=== PATIENT | female | born 1950 | race Caucasian/White ===

== ENCOUNTER → 2020-11-18 14:54 | Outpatient (CLI) | payer MEDICARE, SELFPAY ==
[2020-11-18] MEDS: COVID-19 VACC, Ad26(JANSSEN)/PF 0.5 ML IM (14:59)
== END ==
PROVIDERS: Visit Provider Internal Medicine
DX: Z23 Encounter for immunization (principal)
CPT/HCPCS: 0031A; 91303

== ENCOUNTER 2021-02-21 12:37 | Day surgery (SDC) | payer MEDICARE, SELFPAY ==
[2021-02-21 13:10] LABS: COVID19 -Nasal RAPID Negative (Negative)
[2021-02-21 13:32] VITALS: BP 134/82; PULSE 79; RESP 14; TEMP 36.8; O2SAT 97; BMI 30.1
--- NOTE | 2021-02-21 13:40 | PM.HP.1 ---
History of Present Illness History of Present Illness Date Patient Seen: 02/21/21 Time Patient Seen: 13:40 Chief complaint: SCREENING COLONOSCOPY Narrative: This is a 71-year-old woman with a history of colon polyps, who had her last colonoscopy 5 years ago. She had polyps found on that colonoscopy and was told to have a repeat in 5 years. She denies any symptoms of melena, hematochezia, unexplained abdominal pain, unexplained weight loss. She denies any family history of colon cancers, but says many people in the family have colon polyps. ROS positive for sleep apnea, this aphasia, constipation, UTIs. Thirteen system review is otherwise negative other than as mentioned below and in HPI. PE: GENERAL: Well groomed and cooperative. Appears stated age. Answers questions promptly and appropriately. Vital signs noted. HENT: Normocephalic, atraumatic. Hearing intact. EYES: Conjunctiva pink, sclera white, no periorbital swelling. CARDIOVASCULAR: Regular rate. No pedal edema. RESPIRATORY: Non-tachypneic, breathing comfortably on room air. GASTROINTESTINAL: Abdomen soft and non-distended GENITALURINARY: No flank tenderness. MUSCULOSKELETAL: Equal tone and mass bilaterally. SKIN: Warm, dry, soft, appropriate color for ethnicity. No other lesions, rashes, or wounds. NEURO: Alert and Oriented X 3. No gross sensory deficits, or cognitive issues. PSYCH: Appropriate affect and mood. Patient History Medical History (Updated 02/21/21 @ 13:42 by Emily Martínez MD) Central sleep apnea Insomnia, persistent Obstructive sleep apnea of adult Snoring Surgical History History of tonsillectomy Status post cholecystectomy Status post hysterectomy Family & Social History Family History Brother Age: 67 High cholesterol Brother Depression Alcoholism Child Age: 48 MS (multiple sclerosis) High cholesterol Father Heart disease Hypertension High cholesterol Mother Age: 87 Heart disease High cholesterol Meds Home Medications and Allergies Home Medications Medication Instructions Recorded Confirmed Type paroxetine HCl [Paxil] 20 mg PO Q DAY #30 tab 11/13/16 04/28/19 Rx Respironics DreamStation Auto CPAP #1 ea 04/29/19 04/29/19 History Allergies Allergy/AdvReac Type Severity Reaction Status Date / Time codeine AdvReac Mild Vomiting Verified 02/21/21 13:26 Objective Labs Labs: Laboratory Results - last 24 hr 02/21/21 12:45 SARS-CoV-2 (PCR) Negative Assessment & Plan Assessment and plan (1) Personal history of colonic polyps: Status: Acute Assessment & Plan narrative: Risks and benefits of screening colonoscopy and possible polypectomy were discussed with the patient including risk of bleeding, perforation, need for additional procedures, risks of anesthesia. The patient desires to proceed with the colonoscopy procedure. COVID-19 COVID-19 status: Negative Result date/Date tested (Pos, Neg/Pending): 02/21/21 Time Spent With Patient Time with patient: 15-24 minutes Quality VTE Deep Vein Thrombosis/Pulmonary Embolism Present on Admission: No
--- NOTE | 2021-02-21 13:43 | P.OP.ENDO_ITS ---
Operative Date/Time/Diagnoses Date of procedure: 02/21/21 Time of procedure: 13:43 Pre-op diagnosis: Personal history colon polyps, due for surveillance colonoscopy Post-op diagnosis: other (Very tortuous colon. No polyps found on today's exam.) Procedure & Clinicians Study performed: Colonoscopy Procedural sedation performed by the endoscopist Same procedure as scheduled: Yes Indications: Personal history colon polyps, due for surveillance colonoscopy Surgeon: Emily Martínez Procedure Notes SCOAP/Timeout: Performed Procedure in detail: The patient was brought to the room and placed in left lateral decubitus position with all bony prominences padded. A time-out was performed and then the patient was given procedural sedation starting with 4 mg of Versed and 100 mcg of fentanyl. An additional 2 mg of Versed and 50 micro g of fentanyl were given during the procedure. Vitals were monitored throughout the procedure and remained stable. Once adequately sedated, the procedure was begun. A rectal exam was performed revealing no abnormalities. The colonoscope was then introduced to the rectum and advanced to the cecum in the usual fashion. The cecum was identified by the appendiceal orifice, the mucosal tri- fold, and the ileocecal valve. The scope was then retracted while rotating side to side and examining each mucosal fold. At the conclusion of the procedure retroflexion was performed and small grade 1-2 internal hemorrhoids without stigmata of bleeding were seen. The scope was then withdrawn from the rectum the procedure was concluded. The patient tolerated the procedure well and was transferred to the PACU in stable condition. Scope withdrawal time: 6 Sedation minutes: 18 Specimen(s): none sent Complications: none Impression: Very tortuous colon. No polyps seen on today's exam Post-procedure Recommendations: Colonscopy in 5 years (Due to personal history of colon polyps) Follow up: as needed Disposition: PACU
[2021-02-21] MEDS: SODIUM CHLORIDE 0.9% 1,000 ML 200 ML IV (13:44)
[2021-02-21] MEDS: fentaNYL 250 MCG/5 ML INJ IV (13:58)
[2021-02-21] MEDS: MIDAZOLAM 5 MG/5 ML VIAL IV (13:58)
[2021-02-21 14:13] VITALS: BP 138/75; PULSE 87; RESP 16; TEMP 36.6; O2SAT 97
[2021-02-21 14:18] VITALS: BP 129/74; PULSE 87; RESP 16; O2SAT 100
[2021-02-21 14:30] VITALS: BP 117/70; PULSE 84; RESP 14; TEMP 36.6; O2SAT 99
[2021-02-21 14:42] VITALS: BP 116/67; PULSE 81; RESP 11; O2SAT 100
[2021-02-21 15:05] VITALS: BP 148/96; PULSE 95; TEMP 36.2; O2SAT 94
== END 2021-02-21 15:24 | disposition home or self-care (01) ==
PROVIDERS: PCP Physician Assistant Medical; Referring Provider Surgery; Visit Provider Surgery
PROC: 0DJD8ZZ Inspection of Lower Intestinal Tract, Via Natural or Artificial Opening Endoscopic (ICD-10-PCS; CPT 45378; principal; 2021-02-21 13:45)
DX: Z12.11 Encounter for screening for malignant neoplasm of colon (principal); Z86.010 Personal history of colon polyps; G47.33 Obstructive sleep apnea (adult) (pediatric); Z20.822 Contact with and (suspected) exposure to COVID-19; K64.0 First degree hemorrhoids
CPT/HCPCS: G0105; 87635; 99152; J2250; J3010